=== PATIENT | female | born 1980 | race Caucasian/White ===

== ENCOUNTER 2016-09-09 16:30 | Emergency (ER) | payer BC, MEDICAID ==
[~2016-09-09] VITALS: Ht 172.7 cm; Wt 80.7 kg
[2016-09-09 16:56] VITALS: BP 110/72
[2016-09-09] MEDS ORDERED: Metoclopramide 10mg/2ml Inj IM ONE (17:30)
[2016-09-09] MEDS ORDERED: Ketorolac 60mg Inj IM ONE (17:30)
[2016-09-09 17:36] LABS: APPEARANCE,URINE SLIGHTLY CLOUDY; KETONES,URINE 1+ (NEGATIVE); LEUKOCYTE ESTERASE ,URINE 3+ (NEGATIVE); NITRITE,URINE NEGATIVE (NEGATIVE); PH,URINE 6 (4.5-8.0); PROTEIN,URINE NEGATIVE (NEGATIVE); UROBILINOGEN,URINE NORMAL MG/DL (0.0-1.0)
[2016-09-09 17:48] LABS: RBC,URINE 0-2 /HPF (0 - 2)
[2016-09-09 17:49] LABS: BACTERIA,URINE MANY /HPF; SQUAMOUS EPITHELIAL CELL,UR MODERATE /LPF (NONE/OCC)
--- NOTE | 2016-09-09 18:03 | Emergency Room Report ---
History of Present Illness General Chief Complaint: Headache Source: Patient Present Illness HPI 36-year-old female presents to emergency Department complaining of progressive intermittent headaches x2 days. Also reports nausea and one episode of vomiting. She denies fevers chills patient reports long-standing history of abdominal pain and takes Nexium for acid reflux. Patient states she was just evaluated by her GI specialist approximately 3 days ago. Patient states that her headaches have no to minimal response to Tylenol. She denies history of migraines. Patient reports generalized headache and currently is rated as 7/10 in severity. Denies visual changes, patient reports intermittent facial tingling mainly on the left side of her face. Patient denies weakness patient denies imbalance, denies head trauma or fall. Denies Dysuria, hematuria or frequency, pt. denies states she takes oral contraception however has irregular periods. Patient states past medical history of multiple sclerosis. Denies CP, Palpitations, LOC, AMS, dizziness, Changes in Vision, Sensation, paresthesias, or a sudden severe headache. Allergies: Coded Allergies: PENICILLINS (Verified Allergy, Unknown, 09/09/16) Patient History Past Medical History: see triage record Past Surgical History: none Pertinent Family History: none Last Menstrual Period: 02/17/16 Now: No Reviewed Nursing Documentation: PMH: Agreed, PSxH: Agreed Review of Systems All Other Systems: negative except mentioned in HPI Physical Exam Vital Signs Date Time Temp Pulse Resp B/P Pulse Ox O2 Delivery O2 Flow Rate FiO2 09/09/16 16:41 98.1 71 17 108/70 98 Room Air Sp02 EP Interpretation: reviewed, normal General Appearance: no apparent distress, alert, GCS 15, non-toxic Head: normocephalic, atraumatic Eyes: bilateral eye EOMI, bilateral eye PERRL, bilateral eye normal inspection ENT: hearing grossly normal, normal pharynx, no angioedema, normal voice Neck: full range of motion, supple/symm/no masses Respiratory: lungs clear, normal breath sounds, speaking full sentences Cardiovascular #1: regular rate, rhythm, no edema, normal capillary refill Gastrointestinal: normal bowel sounds, non tender, soft, non-distended, no guarding, no rebound Rectal: deferred Genitourinary: normal inspection, no CVA tenderness Musculoskeletal: back normal, gait/station normal, normal range of motion, non- tender, other Neurologic: alert, oriented x3, responsive, motor strength/tone normal, sensory intact, speech normal, other - equal packing attendant strength bilaterally, negative pronator, negative [place]'s Psychiatric: judgement/insight normal, memory normal, mood/affect normal, no suicidal/homicidal ideation Skin: normal color, no rash, warm/dry, well hydrated Medical Decision Making PA Attestation Dr. Christine is my supervising Physician whom patient management has been discussed with. Diagnostic Impression: Primary Impression: Urinary tract infection Qualified Codes: N30.00 - Acute cystitis without hematuria Additional Impression: Head ache Qualified Codes: R51 - Headache ER Course 36-year-old female presents to emergency Department complaining of progressive intermittent headaches x2 days. Also reports nausea and one episode of vomiting. She denies fevers chills patient reports long-standing history of abdominal pain and takes Nexium for acid reflux. Patient states she was just evaluated by her GI specialist approximately 3 days ago. Patient states that her headaches have no to minimal response to Tylenol. She denies history of migraines. Patient reports generalized headache and currently is rated as 7/10 in severity. Denies visual changes, patient reports intermittent facial tingling mainly on the left side of her face. Patient denies weakness patient denies imbalance. Patient states past medical history of multiple sclerosis. Ddx considered but are not limited to migraine, SAH, Psedudo motor Cerebri, Mass lesion, Cluster MIGUEL, Tension MIGUEL, Post lumbar puncture MIGUEL, UTI, . Vital signs: are WNL, pt. is afebrile H&PE are most consistent with migraine headache ORDERS: - UA: Many bacteria, and many WBC's -Urine Hcg: Negative ED INTERVENTIONS: -10mg IM Reglan -IM Toradol - Pt. states MIGUEL has resolved, states her arm is now sore from injection however MIGUEL has resolved. DISCHARGE: At this time pt. is stable for d/c to home. Will provide printed patient care instructions, and any necessary prescriptions. Care plan and follow up instructions have been discussed with the patient prior to discharge. Labs Test 09/09/16 16:48 Urine Color Yellow Urine Appearance Slightly cloudy Urine pH 6 (4.5-8.0) Urine Specific [place] 1.015 (1.005-1.035) Urine Protein Negative (NEGATIVE) Urine Glucose (UA) Negative (NEGATIVE) Urine Ketones 1+ (NEGATIVE) Urine Occult Blood Negative (NEGATIVE) Urine Nitrite Negative (NEGATIVE) Urine Bilirubin Negative (NEGATIVE) Urine Urobilinogen Normal MG/DL (0.0-1.0) Urine Leukocyte Esterase 3+ (NEGATIVE) Urine RBC 0-2 /HPF (0 - 2) Urine WBC 10-15 /HPF (0 - 2) Urine Squamous Epithelial Cells Moderate /LPF (NONE/OCC) Urine Bacteria Many /HPF (NONE) Urine HCG, Qualitative Negative Last Vital Signs Date Time Temp Pulse Resp B/P Pulse Ox O2 Delivery O2 Flow Rate FiO2 09/09/16 17:53 98.1 09/09/16 16:56 75 17 110/72 98 Room Air Disposition: HOME, SELF-CARE Condition: Stable Scripts Metoclopramide Hcl* (REGLAN*) 10 Mg Tablet 10 MG ORAL THREE TIMES A DAY for 4 Days, #16 TAB Prov: Vivian Pena 09/09/16 Nitrofurantoin Monohyd/M-Cryst* (MACROBID 100 MG*) 100 Mg Capsule 100 MG ORAL EVERY 12 HOURS for 5 Days, #10 CAP Prov: Vivian Pena 09/09/16 Referrals: NON PHYSICIAN (PCP) Patient Instructions: General Headache Without Cause, [id number], Urinary Tract Infection, [id number] Additional Instructions: Take medications as directed. Follow up with PCP in 3-5 days, Recommend to also follow up with your neurologist Return sooner to ED if new symptoms occur, or current symptoms become worse. - Please note that this Emergency Department Report was dictated using [employer] test architect technology software, occasionally this can lead to erroneous entry secondary to interpretation by the dictation equipment. Vivian Pena Sep 09, 2016 18:03
[2016-09-09] MEDS ORDERED: NITROFURANTOIN100 M2 ORAL (18:05)
[2016-09-09] MEDS ORDERED: REGLAN10 MG ORAL (18:05)
[2016-09-09 18:49] VITALS: BP 110/72
== END 2016-09-09 18:50 | disposition home or self-care (01) ==
LOC: EMR 17:32
DX: R51 Headache (principal); N30.00 Acute cystitis without hematuria; R11.2 Nausea with vomiting, unspecified; Z88.0 Allergy status to penicillin; G35 Multiple sclerosis
CPT/HCPCS: 81003; 81025; 87086; 96372; 99284; J2765

== ENCOUNTER 2019-03-21 05:49 | Observation (INO) | payer BC ==
[2019-03-21] VITALS (16 sets, daily range): BP systolic 89–115; BP diastolic 40–71
[~2019-03-21] VITALS: Ht 172.7 cm; Wt 88.0 kg
[~2019-03-21 05:49] MED LIST: NITROFURANTOIN100 M2 ORAL; REGLAN10 MG ORAL
[2019-03-21] MEDS ORDERED: [UNRECOGNIZED DRUG - OTHER] PO (06:22)
[2019-03-21] MEDS ORDERED: NS Irrig 1000ml ONE (07:00)
[2019-03-21] MEDS ORDERED: LR 1000ml ONE (07:00)
[2019-03-21] MEDS ORDERED: Neostigmine 1mg/ml 10ml Inj ONE (07:00)
[2019-03-21] MEDS ORDERED: Succinylcholine 20mg/ml 10ml vial ONE (07:00)
[2019-03-21] MEDS ORDERED: Sterile Water Irrig 1000ml IRRIG ONE (07:00)
[2019-03-21] MEDS ORDERED: TransDerm Scop 1.5mg/72HR Patch TDERMAL ONE (07:08)
[2019-03-21] MEDS ORDERED: cefOXitin 1gm Inj ONE (07:08)
[2019-03-21] MEDS ORDERED: Rocuronium Bromide 50mg/5ml Inj IV ONE (07:08)
[2019-03-21] MEDS ORDERED: Midazolam 2mg/2ml Inj ONE (07:09)
[2019-03-21] MEDS ORDERED: fentaNYL 100 mcg/2 mL ONE (07:09)
[2019-03-21] MEDS ORDERED: Lidocaine 1% MPF 10mg/ml 5ml ONE (07:14)
[2019-03-21] MEDS ORDERED: Propofol 200mg/20ml IV ONE (07:14)
[2019-03-21] MEDS ORDERED: Ropivacaine 5mg/ml Vial 30ml INJ ONE (07:15)
[2019-03-21] MEDS ORDERED: Ketorolac 30mg Inj ONE (07:15)
[2019-03-21] MEDS ORDERED: ProvayBlue 5mg/ml 10ml amp INJ ONE (07:15)
--- NOTE | 2019-03-21 07:56 | Pre-Procedure Note/Attestation ---
Pre-Procedure Note/Attestation Complete Prior to Procedure Planned Procedure: bilateral Procedure Narrative: Video-laser Pelviscopy, Video Hysteroscopy Indications for Procedure Pre-Operative Diagnosis: Chronic Pelvic Pain, Menorrhagia Attestation I attest that I discussed the nature of the procedure; its benefits; risks and complications; and alternatives (and the risks and benefits of such alternatives ), prior to the procedure, with the patient (or the patient's legal apprenticeship training representative). I attest that, if there was a reasonable possibility of needing a blood transfusion, the patient (or the patient's legal apprenticeship training representative) was given the [facility] standardized written summary, pursuant to the [place] Blood Safety Act ([place] Health and Safety Code # 1645, as amended). I attest that I re-evaluated the patient just prior to the surgery and that there has been no change in the patient's H&P, except as documented below:NONE Rito Kruse MD Mar 21, 2019 07:56
[2019-03-21] MEDS ORDERED: LR 1000ml 1,000 ML IVLG SCH (08:36)
--- NOTE | 2019-03-21 08:36 | Anethesia Preoperative Eval ---
Anesthesia Pre-op PMH/ROS General Date of Evaluation: Mar 21, 2019 Time of Evaluation: 07:10 Anesthesiologist: Cordell ASA Score: ASA 2 Mallampati Score Class I : Soft palate, uvula, fauces, pillars visible Class II: Soft palate, uvula, fauces visible Class III: Soft palate, base of uvula visible Class IV: Only hard plate visible Mallampati Classification: Class II Surgeon: Aixa Diagnosis: Pelvic pain Surgical Procedure: D&C Hysteroscopy, Laparoscopy Anesthesia History: none Family History: no anesthesia problems Allergies: Coded Allergies: LATEX, NATURAL RUBBER (Verified Allergy, Mild, 03/21/19) HIVES PENICILLINS (Verified Allergy, Unknown, 03/21/19) skin rash Patient NPO?: Yes Past Medical History Cardiovascular: Denies: HTN, CAD, [place], valve dz, arrhythmia, other Pulmonary: Denies: asthma, COPD, GRISELDA, other Gastrointestinal/Genitourinary: Reports: GERD - mild; Denies: CRI, ESRD, other Neurologic/Psychiatric: Reports: depression/anxiety, other - MS currently in remission; Denies: dementia, CVA, TIA Endocrine: Denies: DM, hypothyroidism, steroids, other HEENT: Denies: cataract (L), cataract (R), glaucoma, [place] (L), [place] (R), other Hematology/Immune: Denies: anemia, DVT, bleeding disorder, other Musculoskeletal/Integumentary: Denies: OA, RA, DJD, DDD, edema, other Other: other - overweight PMH Narrative: as above PSxH Narrative: C section x 2, strabismus, T&A Anesthesia Pre-op Phys. Exam Physician Exam Last Vital Signs Date Time Temp Pulse Resp B/P (MAP) Pulse Ox O2 Delivery O2 Flow Rate FiO2 03/21/19 06:30 97.8 72 20 115/63 100 Room Air Constitutional: NAD Neurologic: CN 2-12 intact Cardiovascular: RRR, no M/R/G Respiratory: CTA Gastrointestinal: S/NT/ND Airway Exam Mallampati Score: Class II MO: full Neck: flexible ROM: full Teeth: intact Dentures: no upper, no lower Anesthesia Pre-op A/P Labs Coagulation Test 03/21/19 06:45 Prothrombin Time 10.8 SEC (9.30-11.50) Prothromb Time International Ratio 1.0 (0.9-1.1) Activated Partial Thromboplast Time 28 SEC (23-33) Urine Test Test 03/21/19 06:00 Urine HCG, Qualitative Negative (NEGATIVE) Risk Assessment & Plan Assessment: ASA 2 Plan: GA with ETT PONV prevention Status Change Before Surgery: No Pre-Antibiotics Drug: Cefoxitin 1gr. Given Within 1 Hr of Incision: Yes Time Given: 08:32 Checo Landa MD Mar 21, 2019 08:36
[2019-03-21] MEDS ORDERED: Glycopyrrolate 0.2mg/ml 1ml Vial ONE (08:42)
[2019-03-21] MEDS ORDERED: Morphine Sulfate 10mg/ml Inj ONE (08:42)
[2019-03-21] MEDS ORDERED: Sodium Chloride 10ml vial INJ ONE (08:42)
[2019-03-21] MEDS ORDERED: Ketorolac 30mg Inj IV PRN (08:45)
[2019-03-21] MEDS ORDERED: DiphenhydrAMINE 50mg/ml Inj IVP PRN (08:45)
[2019-03-21] MEDS ORDERED: Meperidine 50mg/ml Inj(FOR RIGORS ONLY) IV PRN (08:45)
[2019-03-21] MEDS ORDERED: Metoclopramide 10mg/2ml Inj IVP PRN (08:45)
--- NOTE | 2019-03-21 10:06 | Immediate Post-Op Evaluation ---
Immediate Post-Op Evalulation Immediate Post-Op Evalulation Procedure: D&C Hysteroscopy, Laparoscopic lysis of adhesions Date of Evaluation: Mar 21, 2019 Time of Evaluation: 10:05 IV Fluids: 1200 Blood Products: none Estimated Blood Loss: min Urinary Output: 150 Blood Pressure Systolic: 102 Blood Pressure Diastolic: 56 Pulse Rate: 64 Respiratory Rate: 20 O2 Sat by Pulse Oximetry: 99 Temperature (Fahrenheit): 97.7 Pain Score (1-10): 1 Nausea: No Vomiting: No Complications none Patient Status: reacts, patent, extubated, none Hydration Status: adequate Cehco Landa MD Mar 21, 2019 10:06
--- NOTE | 2019-03-21 10:29 | Brief Operative Note ---
Immediate Post Operative Note Operative Note Pre-op Diagnosis: Chronic Pelvic Pain, Menorrhagia Procedure: VLP with extensive resection of endometriosis, VLP with Enterolysis in 2 sites, Video Hysteroscopy, Post-op Diagnosis: Pelvic Endometriosis, Intestinal Adhesions, Pelvic Pain, Menorrhagia Post-op Diagnosis: same as pre-op plus Surgeon: Rito Kruse MD Harvest Worker Fruit: Rosy Clark MD Anesthesiologist: Clemente Landa MD Anesthesia: general Specimen: yes - ECC, EMC Complications: none Condition: stable Fluids: D5LR Estimated Blood Loss: minimal Drains: none Packing: NONE Implant(s) used?: No Rito Kruse MD Mar 21, 2019 10:29
[2019-03-21] MEDS ORDERED: Tylenol #3 tab (300mg/30mg) ORAL PRN (10:30)
[2019-03-21] MEDS ORDERED: HYDROcodone/Acetamin 5/325 tab ORAL PRN (10:30)
[2019-03-21] MEDS ORDERED: HYDROmorphone 1mg/ml Carpuject SUBQ PRN (10:30)
--- NOTE | 2019-03-21 11:36 | 48 Hour Post Anesthesia Eval ---
Post Anesthesia Evaluation Procedure: D&C Hysteroscopy, Laparoscopic lysis of adhesions Date of Evaluation: Mar 21, 2019 Time of Evaluation: 11:35 Blood Pressure Systolic: 102 0: 56 Pulse Rate: 74 Respiratory Rate: 22 Temperature (Fahrenheit): 97.6 O2 Sat by Pulse Oximetry: 98 Airway: patent Nausea: No Vomiting: No Pain Intensity: 3 Hydration Status: adequate Cardiopulmonary Status: stable Mental Status/LOC: patient returned to baseline Follow-up Care/Observations: n/a Post-Anesthesia Complications: none Follow-up care needed: ready to discharge Checo Landa MD Mar 21, 2019 11:36
--- NOTE | 2019-03-21 16:30 | NUR ---
NURSE NOTES: Pt arrived for observation , 2 to inability to urinate. Post Void residual 190. Bladder non distended. Peripad has no presence of blood. Breathing room air. Will remain for observation, Under the direction of Dr Kruse
[2019-03-21] MEDS ORDERED: LR 1000ml 1,000 ML IV SCH (16:45)
--- NOTE | 2019-03-21 17:29 | NUR ---
PT WAS STILL NOT ABLE TO URINATE. BLADDER SCANNER SHOWED 193ML. DR IVERSON MADE AWARE. MD ORDERED ADMIT PT TO 3E DIAGNOSIS URINARY RETENTION. SEE ORDERS. PT REFUSED MASTERS CATHETER PRIOR TO TRANSFER PT STATED SHE WILL TRY AGAIN BEFORE INSERTING MASTERS. ENDORSED TO LEX HICKMAN. PT TRANSFERRED TO 3E REPORT GIVEN TO RECEIVING NURSE, VICK.
--- NOTE | 2019-03-21 17:45 | Operative Note - Dictated ---
DATE OF OPERATION: 03/21/2019 PREOPERATIVE DIAGNOSES: Severe chronic pelvic pain and menorrhagia. POSTOPERATIVE DIAGNOSES: 1. Severe chronic pelvic pain and menorrhagia. 2. Multiple areas of bowel adhesions, intestinal adhesions, and multiple areas of pelvic endometriosis. SURGEON: Rito Kruse M.D. PROCEDURE IN DETAIL: After all the appropriate consents were signed, the patient was brought to the operating room, placed on the table in supine position. General endotracheal anesthesia was induced without complication. The patient was then placed in a dorsal lithotomy position. Perineum, vagina, and abdomen were prepped and draped in usual fashion for the procedure. The patient was then examined under anesthesia. The uterus appeared to be approximately normal size and fully mobile. The cervix was then grasped and dilated and the hysteroscope was introduced. The uterine cavity was visualized and the procedure continued for grasping of the uterine cavity and visualizing all the areas of the cavity. At this time, both endocervical and endometrial curettage were performed. The procedure then continued with video laparoscopy portion. The umbilical incision was made. Veress needle was advanced. The abdomen was insufflated to 15 mmHg. A 10 mm trocar was placed in the umbilicus. Trocar was then used to introduce video laparoscope and fluoroscopy revealed multiple areas of endometriosis and two areas of adhesions from the bowel representing exact areas where the patient reported the pain. At this time, two additional trocars were placed in the midline and the left lower quadrant. The procedure then continued with introducing of the CO2 laser and the procedure began with adhesiolysis of all the intestinal adhesions. The enterolysis continued until all of the areas on the left pelvic sidewall could be visualized, this revealed several additional endometriosis lesions. At this time, the ureter was visualized and the CO2 laser was used to vaporize and excise several areas of the endometriosis along the pelvic wall. Several of the areas were actually just over or just above the ureter on the left side. Additional hydrodissection with vasopressin and with suction resource forester was necessary to safely remove those areas of endometriosis. Once the endometriosis on the left was removed, there were several areas of endometriosis on the right, therefore that side was also hydrodissected and areas of endometriosis were vaporized and resected. The bladder area also contained area of endometriosis, which was excised using a CO2 laser. At this time, the procedure continued with visualizing the additional bowel adhesions, enterolysis was performed on the right upper pelvic sidewall in the area of the complaint. Once this was completed, the enterolysis was stopped and hemostasis was noted in the area of the enterolysis. At this point, the pelvis was once again visualized. All the operative sites were fully hemostatic. There were no additional areas of endometriosis. The procedure then continued with removal of trocars under direct visualization with the laparoscope. The laparoscope was removed after the primary trocar. All the operative sites were fully hemostatic. The patient was then placed in the supine position. The umbilical incision was closed using 0 Vicryl suture at the fascial layer and all the incisions were closed with Steri-Strips and benzoin. The patient was then awakened from general anesthesia and brought to the recovery room in excellent condition. She tolerated the procedure very well. Rito Kruse M.D. DR: ALIE JOB#: [id number] CC:
[2019-03-21] MEDS ORDERED: D5 1/2NS 1,000 ML IV SCH (18:30)
--- NOTE | 2019-03-21 19:15 | NUR ---
NURSE NOTES: RN called Dr. Kruse office to notified that pt voided around 300ml pinkish with some small cloths. patient stated that wants to go home. Received a call back from Dr. Cardona and give the ok to d/c patient home today. We will notify the incoming nurse to prepare the discharge.
--- NOTE | 2019-03-21 19:45 | NUR ---
NURSE NOTES: Receive a report from LEX Dyson. Round is done. Pt is asleep lying in bed. Waiting call back from Dr. Kruse for nausea. Will continue to monitor.
--- NOTE | 2019-03-21 19:50 | NUR ---
NURSE NOTES: Receive a order, Zofran 4mg IVS once, from Dr. Kruse for nausea. Order noted and carried out. Pt and family members made aware.
--- NOTE | 2019-03-21 20:06 | NUR ---
HAND-OFF: Report given to Chepe BURNETT.
--- NOTE | 2019-03-21 20:10 | NUR ---
NURSE NOTES: Pt and family members have concerns about symptoms pt has after procedure. Provide information and done emotional support. Nausea sensation got much better after Zofran IVS. Will process for discharge.
--- NOTE | 2019-03-21 20:30 | NUR ---
NURSE NOTES: Pt concerns about not having urination after she voided earlier. Check with bladder scanner but did not show residual urine. Encourage oral hydration and give instructions for inducing natural voiding. Pt verbalizes understanding. Will continue to monitor.
--- NOTE | 2019-03-21 20:53 | NUR ---
NURSE NOTES: @2044: Pt is awake and alert. Op site on lower abdomen and left side are dry and clear without bleeding signs. Pain is tolerating with 3/10. Provide discharge instructions with following up appointment with Dr. Kruse within two weeks. Done checking belonging list. IV site and pt's wrist band got removed. @2049: Escort pt to private car via wheelchair. @2052: Left hospital with family members to home.
== END 2019-03-21 20:53 | disposition home or self-care (01) ==
LOC: SUR 05:49 → 3E 17:59
DX: N92.0 Excessive and frequent menstruation with regular cycle (principal); K66.0 Peritoneal adhesions (postprocedural) (postinfection); N80.9 Endometriosis, unspecified; K21.9 Gastro-esophageal reflux disease without esophagitis; F32.9 Major depressive disorder, single episode, unspecified; F41.9 Anxiety disorder, unspecified; G35 Multiple sclerosis; E66.3 Overweight; Z68.29 Body mass index [BMI] 29.0-29.9, adult
CPT/HCPCS: 36415; 58558; 58662; 81025; 85610; 85730; G0378; J0330; J0694; J1885; J2175; J2250; J2270; J2405; J2704; J2710; J2795; J3010; 94003; 94150

== ENCOUNTER 2019-03-27 14:25 | Emergency (ER) | payer BC ==
[~2019-03-27] VITALS: Ht 152.4 cm; Wt 88.0 kg
[~2019-03-27 14:25] MED LIST changes: +[UNRECOGNIZED DRUG - OTHER] PO
[2019-03-27] MEDS ORDERED: NKM (14:36)
--- NOTE | 2019-03-27 14:36 | Emergency Room Report ---
History of Present Illness General Chief Complaint: Chest pain Source: Patient, Medical Record Present Illness HPI 38-year-old female history of recent laparoscopic surgery, presents with chest palpitations, chest pain no aggravating relieving factors severity is mild intermittent, patient feels like she cannot get a deep breath, she was seen at Dr. Iverson's office, there was a concern for pulmonary embolism, patient was sent here for PE rule out. Symptoms have been ongoing for approximately 2 days. Patient does endorse some shortness of breath. Allergies: Coded Allergies: LATEX, NATURAL RUBBER (Verified Allergy, Mild, 03/21/19) HIVES PENICILLINS (Verified Allergy, Unknown, 03/21/19) skin rash Patient History Past Medical History: see triage record Reviewed Nursing Documentation: PMH: Agreed; PSxH: Agreed Nursing Documentation-PMH Hx Cardiac Problems: No Hx Cancer: No Hx Gastrointestinal Problems: No Hx Neurological Problems: No Review of Systems All Other Systems: negative except mentioned in HPI Physical Exam Sp02 EP Interpretation: reviewed, normal General Appearance: well appearing, no apparent distress, alert Head: normocephalic, atraumatic Eyes: bilateral eye PERRL, bilateral eye EOMI ENT: uvula midline, moist mucus membranes Neck: supple, thyroid normal, supple/symm/no masses Respiratory: lungs clear, no respiratory distress, no retraction, no accessory muscle use Cardiovascular #1: normal peripheral pulses, regular rate, rhythm, no edema, no gallop, no murmur Gastrointestinal: non tender, soft, no guarding, no rebound Musculoskeletal: normal inspection Neurologic: alert, oriented x3 Psychiatric: mood/affect normal Skin: no rash, warm/dry Medical Decision Making Diagnostic Impression: Primary Impression: Dyspnea Qualified Codes: R06.00 - Dyspnea, unspecified Additional Impression: Atelectasis ER Course 38-year-old female presents with dyspnea after an operation, concern for possible ulnar embolism, versus ACS, versus atelectasis CTA conducted shows no acute processes, EKG negative chest x-ray negative, lab work is essentially negative Counseled patient, disposition home with return precautions, notify Dr. IVERSON Laboratory Tests Test 03/27/19 14:40 03/27/19 16:00 White Blood Count 6.9 K/UL (4.8-10.8) Red Blood Count 4.54 M/UL (4.20-5.40) Hemoglobin 14.2 G/DL (12.0-16.0) Hematocrit 41.7 % (37.0-47.0) Mean Corpuscular Volume 92 FL (80-99) Mean Corpuscular Hemoglobin 31.2 PG (27.0-31.0) H Mean Corpuscular Hemoglobin Concent 34.0 G/DL (32.0-36.0) Red Cell Distribution Width 11.1 % (11.6-14.8) L Platelet Count 197 K/UL (150-450) Mean Platelet Volume 8.1 FL (6.5-10.1) Neutrophils (%) (Auto) 60.8 % (45.0-75.0) Lymphocytes (%) (Auto) 25.3 % (20.0-45.0) Monocytes (%) (Auto) 7.0 % (1.0-10.0) Eosinophils (%) (Auto) 5.9 % (0.0-3.0) H Basophils (%) (Auto) 1.0 % (0.0-2.0) Prothrombin Time 10.3 SEC (9.30-11.50) Prothrombin Time INR 1.0 (0.9-1.1) PTT 26 SEC (23-33) Sodium Level 139 MMOL/L (136-145) Potassium Level 3.7 MMOL/L (3.5-5.1) Chloride Level 106 MMOL/L (98-107) Carbon Dioxide Level 28 MMOL/L (21-32) Anion Gap 5 mmol/L (5-15) Blood Urea Nitrogen 12 mg/dL (7-18) Creatinine 0.8 MG/DL (0.55-1.30) Estimate Glomerular Filtration Rate > 60 mL/min (>60) Glucose Level 88 MG/DL (74-106) Calcium Level 8.9 MG/DL (8.5-10.1) Total Bilirubin 0.3 MG/DL (0.2-1.0) Aspartate Amino Transferase (AST) 23 U/L (15-37) Alanine Aminotransferase (ALT) 44 U/L (12-78) Alkaline Phosphatase 52 U/L (46-116) Troponin I 0.000 ng/mL (0.000-0.056) Pro-B-Type Natriuretic Peptide 76 pg/mL (0-125) Total Protein 7.3 G/DL (6.4-8.2) Albumin 3.6 G/DL (3.4-5.0) Globulin 3.7 g/dL Albumin/Globulin Ratio 1.0 (1.0-2.7) Lipase 156 U/L (73-393) Human Chorionic Gonadotropin, Quant 1 mIU/mL (1-6) Urine HCG, Qualitative Negative (NEGATIVE) EKG Diagnostic Results EKG Time: 14:36 EP Interpretation: NSR rate [address] elevations, normal axis Rhythm Strip Diag. Results Rhythm Strip Time: 14:41 EP Interpretation: yes Rate: 85 Rhythm: NSR, no PVC's, no ectopy Chest X-Ray Diagnostic Results Chest X-Ray Diagnostic Results : Chest X-Ray Ordered: Yes # of Views/Limited/Complete: 1 View Indication: Shortness of Breath EP Interpretation: Yes Interpretation: no consolidation, no effusion, no pneumothorax, no acute cardiopulmonary disease Impression: No acute disease Electronically Signed by: Adi Hyatt MD CT/MRI/US Diagnostic Results CT/MRI/US Diagnostic Results : Impression Procedure: CTA Chest w Contrast ndication: Chest pain, chest palpitations, unable to take a deep breath Technique: IV administration nonionic contrast. Spiral acquisitions obtained from the lung bases to the lung apices. Multiplanar and 3-D reconstructions were generated. Total dose length product 906 mGycm. CTDIvol(s) 4 mGy. Dose reduction achieved using automated exposure control Comparison: none Findings: There is good quality opacification of the pulmonary arteries. No intraluminal filling defects or other findings to suggest acute pulmonary embolus are demonstrated. No evidence of pulmonary arterial dilatation or right ventricular dilatation. No evidence of thoracic aortic aneurysm. There is common origin of the right brachiocephalic left common carotid artery; otherwise normal branching anatomy and caliber of the great neck vessels. There is normal caliber of the proximal visceral vessels. The lungs demonstrate minimal posterior dependent atelectatic changes. There are subpleural areas of parenchymal thickening in the posterior left lower lobe, likely representing atelectatic changes. Lungs and pleural spaces are otherwise clear. No infiltrates, effusions, masses, or nodules are demonstrated. The heart size is normal. No pericardial effusion. No mediastinal or hilar mass or adenopathy. The included portion of the thyroid is unremarkable. No axillary or chest wall mass or adenopathy. Included upper abdominal anatomy is unremarkable. The bones are unremarkable. Impression: Essentially unremarkable exam. No evidence of acute pulmonary embolus. No other acute or significant abnormality demonstrated Minimal posterior dependent pulmonary atelectatic changes incidentally noted The CT scanner at [facility] is accredited by the [employer] and the scans are performed using protocols designed to limit radiation exposure to as low as reasonably achievable to attain images of sufficient resolution adequate for diagnostic evaluation. Dictated By: Naeem Comer MD Electronically Signed By: Naeem Comer MD Signed Date/Time 03/27/19 3610 CC: Adi Hyatt MD Disposition: HOME, SELF-CARE Condition: Stable Scripts Famotidine (PEPCID AC) 20 Mg Tablet 20 MG PO BID, #60 TAB Prov: Adi Hyatt MD 03/27/19 Referrals: Rito Iverson MD Patient Instructions: Shortness of Breath, [id number] Additional Instructions: The patient was provided with discharge instructions, notified to follow-up with a primary care doctor and or specialist in the next 24-48 hours, and to return to the ED if they have worsening of their symptoms. Please note that this report is being documented using [employer] technology. This can lead to erroneous entry secondary to incorrect interpretation by the dictating instrument. Adi Hyatt MD Mar 27, 2019 14:36
[2019-03-27 14:40] VITALS: BP 123/75
--- NOTE | 2019-03-27 14:40 | NUR ---
ED Nurse Note: Pt walked in due to possible pulmonary embolism. Pt had recent laparoscopic endometriosis surgery 03/21/19. Pt reports increased heart rate with palpitations with SOB 2 days ago. AAO x4 ambulatory and Denies CP at this time. Dr Hyatt at the bed side.
[2019-03-27] MEDS ORDERED: Omnipaue 350mg/ml 100ml vial INJ PRN (14:45)
--- NOTE | 2019-03-27 16:05 | NUR ---
ED Nurse Note: Collected urine then sent.
[2019-03-27 16:07] LABS: EOSINOPHILS % (AUTO) 5.9 % (0.0-3.0); HEMATOCRIT 41.7 % (37.0-47.0); HEMOGLOBIN 14.2 G/DL (12.0-16.0); LYMPHOCYTES % (AUTO) 25.3 % (20.0-45.0); MEAN CORPUSCULAR VOLUME 92 FL (80-99); NEUTROPHILS % (AUTO) 60.8 % (45.0-75.0); PLATELET COUNT 197 K/UL (150-450); RED BLOOD COUNT 4.54 M/UL (4.20-5.40); RED CELL DISTRIBUTION WIDTH 11.1 % (11.6-14.8); WHITE BLOOD COUNT 6.9 K/UL (4.8-10.8)
[2019-03-27 16:16] LABS: ANION GAP 5 mmol/L (5-15); BLOOD UREA NITROGEN 12 mg/dL (7-18); CALCIUM 8.9 MG/DL (8.5-10.1); CARBON DIOXIDE 28 MMOL/L (21-32); CHLORIDE 106 MMOL/L (98-107); CREATININE 0.8 MG/DL (0.55-1.30); POTASSIUM 3.7 MMOL/L (3.5-5.1); SODIUM 139 MMOL/L (136-145)
[2019-03-27 16:25] LABS: ALANINE AMINOTRANSFERASE 44 U/L (12-78); ALBUMIN 3.6 G/DL (3.4-5.0); ALKALINE PHOSPHATASE 52 U/L (46-116); ASPARTATE AMINO TRANSFERASE 23 U/L (15-37); BILIRUBIN,TOTAL 0.3 MG/DL (0.2-1.0)
--- NOTE | 2019-03-27 16:27 | Diagnostic Imaging Report ---
Indication: Chest pain Technique: One view of the chest Comparison: 07/22/2007 Findings: Lungs and pleural spaces are clear. Heart size is normal. Impression: No acute process
[2019-03-27 16:40] VITALS: BP 134/70
--- NOTE | 2019-03-27 17:13 | Diagnostic Imaging Report ---
ndication: Chest pain, chest palpitations, unable to take a deep breath Technique: IV administration nonionic contrast. Spiral acquisitions obtained from the lung bases to the lung apices. Multiplanar and 3-D reconstructions were generated. Total dose length product 906 mGycm. CTDIvol(s) 4 mGy. Dose reduction achieved using automated exposure control Comparison: none Findings: There is good quality opacification of the pulmonary arteries. No intraluminal filling defects or other findings to suggest acute pulmonary embolus are demonstrated. No evidence of pulmonary arterial dilatation or right ventricular dilatation. No evidence of thoracic aortic aneurysm. There is common origin of the right brachiocephalic left common carotid artery; otherwise normal branching anatomy and caliber of the great neck vessels. There is normal caliber of the proximal visceral vessels. The lungs demonstrate minimal posterior dependent atelectatic changes. There are subpleural areas of parenchymal thickening in the posterior left lower lobe, likely representing atelectatic changes. Lungs and pleural spaces are otherwise clear. No infiltrates, effusions, masses, or nodules are demonstrated. The heart size is normal. No pericardial effusion. No mediastinal or hilar mass or adenopathy. The included portion of the thyroid is unremarkable. No axillary or chest wall mass or adenopathy. Included upper abdominal anatomy is unremarkable. The bones are unremarkable. Impression: Essentially unremarkable exam. No evidence of acute pulmonary embolus. No other acute or significant abnormality demonstrated Minimal posterior dependent pulmonary atelectatic changes incidentally noted The CT scanner at [facility] is accredited by the [employer] and the scans are performed using protocols designed to limit radiation exposure to as low as reasonably achievable to attain images of sufficient resolution adequate for diagnostic evaluation.
[2019-03-27] MEDS ORDERED: PEPCID AC20 M2 PO (17:34)
[2019-03-27 17:42] VITALS: BP 133/74
--- NOTE | 2019-03-27 17:42 | NUR ---
ER DISCHARGE NOTE: Patient is cleared to be discharged per ERMD, pt is aox4, on room air, with stable vital signs. pt was given dc and prescription instructions, pt was able to verbalize understanding, pt id band and iv site removed without complications. pt is able to ambulate with steady gait. pt took all belongingsm and left with her family member.
--- NOTE | 2019-03-29 17:35 | Cardiology Report ---
APPROVED REPORT EKG Measurement Heart [id number] Normal sinus rhythm Cannot rule out Anterior infarct, age undetermined Abnormal ECG
== END 2019-03-27 17:42 | disposition home or self-care (01) ==
LOC: EMR 15:46
DX: R06.00 Dyspnea, unspecified (principal); J98.11 Atelectasis; R00.2 Palpitations; R07.9 Chest pain, unspecified
CPT/HCPCS: 36415; 71045; 71275; 80053; 81025; 83690; 83880; 84484; 84702; 85025; 85610; 85730; 93005; 96360; 99284; Q9967